=== PATIENT | male | born 1995 | race American Indian/Alaskan Native ===

== ENCOUNTER 2020-04-07 14:09 | Emergency (ER) | payer SELFPAY ==
[2020-04-07 14:31] VITALS: BP 125/63
--- NOTE | 2020-04-07 14:32 | Emergency Department Report ---
ED General Adult HPI - General Stated complaint: FLU SX Time Seen by Provider: 04/07/20 14:29 - History of Present Illness Initial comments: 25-year-old -Ang[place] male presents with complaints of chills, congestion, body aches, and cough x4 days. He denies any prior medical history. Patient states he is seeking a return to work note. He denies any productive cough, hemoptysis, chest pain, shortness of breath, nausea/vomiting/diarrhea, loss of smell/taste, or recent known sick contacts. - Related Data Allergies Allergy/AdvReac Type Severity Reaction Status Date / Time bee venom protein (honey bee) Allergy Swelling Verified 04/07/20 14:28 ED Review of Systems ROS: Stated complaint: FLU SX Other details as noted in HPI Constitutional: chills, malaise. denies: diaphoresis, fever, weakness ENT: denies: ear pain, throat pain Respiratory: cough. denies: shortness of breath Cardiovascular: denies: chest pain Gastrointestinal: denies: abdominal pain, nausea, vomiting Skin: denies: rash, change in color Neurological: denies: headache Hematological/Lymphatic: denies: swollen glands ED Physical Exam - General General appearance: alert, in no apparent distress - Head Head exam: Present: atraumatic - Eye Eye exam: Present: normal appearance. Absent: scleral icterus - Respiratory Respiratory exam: Present: normal lung sounds bilaterally. Absent: respiratory distress - Cardiovascular Cardiovascular Exam: Present: regular rate, normal rhythm - Neurological Exam Neurological exam: Present: alert, oriented X3, normal gait - Psychiatric Psychiatric exam: Absent: normal affect, normal mood - Skin Skin exam: Present: warm, dry, intact, normal color. Absent: rash ED Course Vital Signs 04/07/20 14:28 Temperature 97.8 F Pulse Rate 69 Respiratory 18 Rate Blood Pressure 125/63 [Right] O2 Sat by Pulse 98 Oximetry ED Medical Decision Making - Radiology Data Radiology results: report reviewed CHEST 2 VIEWS INDICATION / CLINICAL INFORMATION: Cough. COMPARISON: None available. FINDINGS: SUPPORT DEVICES: None. HEART / MEDIASTINUM: No significant abnormality. LUNGS / PLEURA: No significant pulmonary or pleural abnormality. No pneumothorax. ADDITIONAL FINDINGS: No significant additional findings. IMPRESSION: 1. No acute findings. - Medical Decision Making 25-year-old -[place] male presents with complaints of chills, congestion, body aches, and cough x4 days. He denies any prior medical history. Patient states he is seeking a return to work note. He denies any productive cough, hemoptysis, chest pain, shortness of breath, nausea/vomiting/diarrhea, loss of smell/taste, or recent known sick contacts. Lungs are clear on exam. Chest x-ray is normal. Patient is well-appearing and afebrile and nontachycardic. He is stable for discharge home and follow-up with his PCP. Recommend outpatient Covid testing-Covid testing facility list provided to patient. Strict return precautions were discussed in detail with patient who verbalized understanding. Critical care attestation.: If time is entered above; I have spent that time in minutes in the direct care of this critically ill patient, excluding procedure time. ED Disposition Clinical Impression: Viral URI with cough Disposition: - TO HOME OR SELFCARE Is pt being admited?: No Condition: Stable Instructions: Viral Respiratory Infection Referrals: [facility] [Provider Group] - 3-5 Days
--- NOTE | 2020-04-07 15:24 | XRay Report ---
CHEST 2 VIEWS INDICATION / CLINICAL INFORMATION: Cough. COMPARISON: None available. FINDINGS: SUPPORT DEVICES: None. HEART / MEDIASTINUM: No significant abnormality. LUNGS / PLEURA: No significant pulmonary or pleural abnormality. No pneumothorax. ADDITIONAL FINDINGS: No significant additional findings. IMPRESSION: 1. No acute findings. Signer Name: Niraj Diaz MD Signed: 04/07/2020 3:20 PM Workstation Name: [id number] [id number]
== END 2020-04-07 17:00 | disposition home or self-care (01) ==
LOC: ED 14:09
DX: J06.9 Acute upper respiratory infection, unspecified (principal); B34.9 Viral infection, unspecified; R05 Cough; Z91.030 Bee allergy status
CPT/HCPCS: 71046; 99281

== ENCOUNTER 2020-04-08 12:05 | Emergency (ER) | payer SELFPAY ==
--- NOTE | 2020-04-08 12:28 | Emergency Department Report ---
Chief Complaint: Upper Respiratory Infection Stated Complaint: FLY SX - HPI History of Present Illness: The patient was evaluated in the emergency department for symptoms described in the history of present illness. He/she was evaluated in the context of the global COVID-19 pandemic, which necessitated consideration that the patient might be at risk for infection with the virus that causes COVID-19. Institutional protocols and algorithms that pertain to the evaluation of patients at risk for COVID-19 are in a state of rapid change based on information released by regulatory bodies including the CDC and federal and state organizations. These policies and algorithms were followed during the patient's care in the emergency department. Please note that these policies, procedures and recommendations changed on a rapid basis. 25-year-old -Spanish male presents to the emergency room complaint of wanting a checkup. Patient states that he had flulike symptoms on Saturday came in yesterday had a chest x-ray but could not stay for the results. Patient denies any nausea vomiting no chest pain or shortness of breath or cough. Patient is requesting a work excuse. - Exam Physical Exam: Gen: alert oriented NAD Cardic: regular rate and rhythm no murmurs appreciated Resp: Clear to auscultation bilateral no wheezing no rales or rhonchi. Abdomen: Soft nontender nondistended normal bowel sounds. Ambulatory without difficulties MSE screening note: Focused history and physical exam performed. Due to findings the following was ordered: 25-year-old -Spanish male presents to the emergency room complaint of wanting a checkup. Patient states that he had flulike symptoms on Saturday came in yesterday had a chest x-ray but could not stay for the results. Patient denies any nausea vomiting no chest pain or shortness of breath or cough. Patient is requesting a work excuse. ED Medical Decision Making - Radiology Data Radiology results: report reviewed Referring Physician:LUDWIN MOBLEYPatient Name:KADE BAHENA BATESPatient ID:[id number] of :[id number]:MaleAccession:[id number] Date:[id number] Status:Finalized Findings [facility] [address] [place] [address] XRay Report Signed Patient: KADE WHITE MR#: [id number] : 1995 Acct:[id number] Age/Sex: 25 / M ADM Date: 04/07/20 Loc: ED Attending Dr: Ordering Physician: LUDWIN MOBLEY Date of Service: 04/07/20 Procedure(s): XR chest routine 2V Accession Number(s): [id number] cc: LUDWIN MOBLEY Fluoro Time In Minutes: CHEST 2 VIEWS INDICATION / CLINICAL INFORMATION: Cough. COMPARISON: None available. FINDINGS: SUPPORT DEVICES: None. HEART / MEDIASTINUM: No significant abnormality. LUNGS / PLEURA: No significant pulmonary or pleural abnormality. No pneumothorax. ADDITIONAL FINDINGS: No significant additional findings. IMPRESSION: 1. No acute findings. Signer Name: Niraj Diaz MD Signed: 04/07/2020 3:20 PM Workstation Name: [id number] Transcribed By: CHRISTOPHER Dictated By: Niraj Diaz MD Electronically Authenticated By: Niraj Diaz MD Signed Date/Time: 04/07/20 152 DD/ 18 TD/TT: ED Disposition for MSE Disposition: MED SCREENING EXAM-LEFT Is pt being admited?: No Does the pt Need Aspirin: No Condition: Stable Additional Instructions: Your symptoms appear most consistent with a nonspecific viral syndrome. However, given this current pandemic, COVID-19 is in the differential of possibilities. Despite your previous negative COVID-19 test, I do recommend repeat outpatient Covid 19 testing. In the meantime, isolate/quarantine yourself and stay away from anyone who is elderly, immunocompromised or chronically ill. You can use ibuprofen every 6-8 hours and Tylenol every 4-8 hours, using the dosing on the back of the bottle, as needed for any fever or body aches. Return to the emergency department with any worsening of your symptoms, development of chest pain or shortness of breath, or with any acute distress. Referrals: [facility] [Outside] - 3-5 Days [facility] [Provider Group] - 3-5 Days Forms: Work/School Release Form(ED)
[2020-04-08 12:30] VITALS: BP 133/70
[2020-04-08] MEDS ORDERED: ETOMIDATE 20 MG/10 ML INJ IV ONE (12:50)
[2020-04-08] MEDS ORDERED: ROCURONIUM 50 MG/5 ML INJ IV ONE (12:50)
== END 2020-04-08 12:43 | disposition left against medical advice (07) ==
LOC: ED 12:05

== ENCOUNTER 2021-07-28 19:44 | Emergency (ER) | payer SELFPAY ==
[2021-07-28] MEDS ORDERED: ALBUTEROL 2.5 MG/3 ML NEBU IH ONE (22:05)
[2021-07-28] MEDS ORDERED: IPRATROPIUM 0.02% NEBU 2.5 ML IH ONE (22:05)
--- NOTE | 2021-07-28 22:32 | Emergency Department Report ---
ED General Adult HPI - General Chief complaint: Extremity Injury, Lower Stated complaint: RIGHT BIG TOE PAIN Time Seen by Provider: 07/28/21 21:55 Source: patient Mode of arrival: Ambulatory Limitations: No Limitations - Related Data Previous Rx's Medication Instructions Recorded Last Taken Type Chlorhexidine Gluconate [Hibiclens] 10 ml TP BID #240 liquid 07/28/21 Unknown Rx cephALEXin [Keflex] 500 mg PO Q8HR #30 capsule 07/28/21 Unknown Rx Allergies Allergy/AdvReac Type Severity Reaction Status Date / Time bee venom protein (honey bee) Allergy Swelling Verified 04/07/20 14:28 ED Review of Systems ROS: Stated complaint: RIGHT BIG TOE PAIN Other details as noted in HPI Comment: All other systems reviewed and negative ED Past Medical Hx - Past Medical History Previous Medical History?: No - Surgical History Past Surgical History?: No - Social History Smoking Status: Current Every Day Smoker Substance Use Type: Marijuana - Medications Home Medications: Home Medications Medication Instructions Recorded Confirmed Last Taken Type Chlorhexidine Gluconate [Hibiclens] 10 ml TP BID #240 liquid 07/28/21 Unknown Rx cephALEXin [Keflex] 500 mg PO Q8HR #30 capsule 07/28/21 Unknown Rx ED Physical Exam - General Limitations: No Limitations General appearance: alert, in no apparent distress - Head Head exam: Present: atraumatic, normocephalic - Eye Eye exam: Present: normal appearance, PERRL Pupils: Present: normal accommodation - ENT ENT exam: Present: normal exam, normal orophraynx, mucous membranes moist - Neck Neck exam: Present: normal inspection, full ROM - Respiratory Respiratory exam: Present: normal lung sounds bilaterally. Absent: respiratory distress - Cardiovascular Cardiovascular Exam: Present: regular rate, normal rhythm. Absent: systolic murmur, diastolic murmur, rubs, gallop - GI/Abdominal GI/Abdominal exam: Present: soft, normal bowel sounds - Rectal Rectal exam: Present: deferred - Extremities Exam Extremities exam: Present: normal inspection, tenderness (To the right hallux with some scant bleeding around the edges of the toenail. Nail appears to be in place partially avulsed at the tip. Capillary refills are brisk pulses 2+ full range of motion of the toe no felon is noted no paronychia does have some serosanguineous drainage), normal capillary refill - Back Exam Back exam: Present: normal inspection - Neurological Exam Neurological exam: Present: alert, oriented X3, CN II-XII intact - Psychiatric Psychiatric exam: Present: normal affect, normal mood - Skin Skin exam: Present: warm, dry, intact, normal color. Absent: rash ED Course Vital Signs 07/28/21 20:43 Temperature 98 F Pulse Rate 75 Respiratory 16 Rate Blood Pressure 118/60 O2 Sat by Pulse 98 Oximetry Critical care attestation.: If time is entered above; I have spent that time in minutes in the direct care of this critically ill patient, excluding procedure time. ED Disposition Clinical Impression: Nail avulsion of toe Disposition: HOME / SELF CARE / HOMELESS Is pt being admited?: No Does the pt Need Aspirin: No Condition: Stable Instructions: Nail Avulsion Prescriptions: Chlorhexidine Gluconate [Hibiclens] 10 ml TP BID #240 liquid cephALEXin [Keflex] 500 mg PO Q8HR #30 capsule Referrals: [facility] [Provider Group] - 3-5 Days
[2021-07-28 22:48] VITALS: BP 128/75
== END 2021-07-28 23:08 | disposition home or self-care (01) ==
LOC: ED 19:44
DX: S91.201A Unspecified open wound of right great toe with damage to nail, initial encounter (principal); F17.200 Nicotine dependence, unspecified, uncomplicated; F12.90 Cannabis use, unspecified, uncomplicated; Z91.030 Bee allergy status; X58.XXXA Exposure to other specified factors, initial encounter; Y93.89 Activity, other specified; Y92.89 Other specified places as the place of occurrence of the external cause; Y99.8 Other external cause status
CPT/HCPCS: 99282